=== PATIENT | male | born 1985 | race Caucasian/White ===

== ENCOUNTER → 2017-12-15 | Outpatient (CLI) | payer OTHER ==
[~2017-12-15] MED LIST: ISOVUE-370 76% 100ML VIAL (Q9967) As Ordered
== END ==
LOC: M RAD 13:14
DX: Q18.0 Sinus, fistula and cyst of branchial cleft (principal); R59.9 Enlarged lymph nodes, unspecified
CPT/HCPCS: Q9967

== ENCOUNTER 2018-05-09 06:49 | Day surgery (SDC) | payer OTHER ==
[2018-05-09] MEDS ORDERED: LIDOCAINE 1% MDV 20ML VIAL SQ (07:00)
[2018-05-09] MEDS: LR 1,000 ML IV (07:26)
[2018-05-09] MEDS ORDERED: PROPOFOL 200 MG/20 ML VIAL As Ordered (07:50)
[2018-05-09] MEDS ORDERED: fentaNYL 100 MCG/2 ML INJECTION (J3010) As Ordered (07:50)
[2018-05-09] MEDS ORDERED: ONDANSETRON 4MG/2ML VIAL (J2405) As Ordered (07:50)
[2018-05-09] MEDS ORDERED: MIDAZOLAM INJ 2 MG/2 ML VIAL (J2250) As Ordered (07:50)
[2018-05-09] MEDS ORDERED: LIDOCAINE 2% INJ 100 MG/5 ML SDV (FOR ANES.) As Ordered (07:50)
[2018-05-09] MEDS ORDERED: dexameTHASONE 4 MG/ML 1ML VIAL (J1100) As Ordered (07:50)
[2018-05-09] MEDS: LIDOCAINE W/EPINEPHRINE 1% 20ML VIAL As Ordered (08:40)
[2018-05-09] MEDS: BACITRACIN OINT 30GM As Ordered (08:58)
== END 2018-05-09 09:46 | disposition home or self-care (01) ==
LOC: M SDC 06:49
DX: L72.3 Sebaceous cyst (principal); I10 Essential (primary) hypertension
CPT/HCPCS: 11442